=== PATIENT | male | born 2005 | race African-American/Black ===

== ENCOUNTER 2024-07-26 22:49 | Emergency (ER) | payer OTHER ==
[~2024-07-26] VITALS: Ht 193 cm; Wt 109.8 kg
[2024-07-27] MEDS: dexaMETHasone SOD PHOSPHATE 4 MG/ML VIAL IM ONE
[2024-07-27] MEDS: HYDROCODONE/APAP 5/325MG TABLET PO ONE
[2024-07-27] MEDS: CARISOPRODOL 350 MG TABLET PO ONE
[2024-07-27] MEDS ORDERED: CARISOPRODOL 350 MG TABLET ONE (00:02)
[2024-07-27] MEDS ORDERED: HYDROCODONE/APAP 5/325MG TABLET ONE (00:02)
[2024-07-27] MEDS ORDERED: dexaMETHasone SOD PHOSPHATE 1 ML ONE (00:02)
[2024-07-27] MEDS ORDERED: IBUP-1957 PO (00:39)
[2024-07-27 00:55] VITALS: BP 154/94; TEMP 97.9; O2SAT 99
== END 2024-07-27 01:11 | disposition home or self-care (01) ==
LOC: ER 22:55
DX: M54.6 Pain in thoracic spine (principal); Z79.1 Long term (current) use of non-steroidal anti-inflammatories (NSAID); X58.XXXA Exposure to other specified factors, initial encounter; Y93.67 Activity, basketball; Y92.89 Other specified places as the place of occurrence of the external cause; Y99.8 Other external cause status
CPT/HCPCS: 99285; 72128; 96372; J1100